=== PATIENT | female | born 1985 | race Caucasian/White ===

== ENCOUNTER → 2016-06-13 | Outpatient (CLI) | payer BC ==
--- NOTE | 2016-06-16 13:20 | XR ---
EXAMINATION TYPE: XR lumbosacral spine min 4V DATE OF EXAM: 06/13/2016 12:28 PM CLINICAL HISTORY: Low back pain. TECHNIQUE: Frontal, lateral, and oblique images of the lumbar spine are obtained. COMPARISON: Lumbar spine x-ray March 09, 2014. FINDINGS: There are 5 lumbar type vertebral bodies identified. The lumbar spine shows satisfactory alignment without evidence of acute fracture or dislocation. Vertebral body heights and disk space he ights are within normal limits. The oblique images appear within normal limits. The overlying soft tissue appears unremarkable. IMPRESSION: Unremarkable study. No significant change from prior.
== END | disposition home or self-care (01) ==
LOC: RADXRMAIN 12:14
PROVIDERS: ATTEND Family Medicine
DX: G89.29 Other chronic pain (principal)
CPT/HCPCS: 72110

== ENCOUNTER → 2016-06-18 | Outpatient (CLI) | payer BC ==
--- NOTE | 2016-06-18 11:33 | MR ---
EXAMINATION TYPE: MR lumbar spine wo con DATE OF EXAM: 06/18/2016 9:40 AM COMPARISON: X-ray 06/13/2016 HISTORY: Chronic back pain TECHNIQUE: Multiplanar, multisequence images of the lumbar spine were acquired. L1-L2: Normal disc appearance without desiccation. No herniation, protrusion or disc bulging. No ca nal stenosis is present. Foramina are patent bilaterally. L2-L3: Normal disc appearance without desiccation. No herniation, protrusion or disc bulging. No ca nal stenosis is present. Foramina are patent bilaterally. L3-L4: Normal disc appearance without desiccation. No herniation, protrusion or disc bulging. No ca nal stenosis is present. Foramina are patent bilaterally. L4-L5: Normal disc appearance without desiccation. No herniation, protrusion or disc bulging. No ca nal stenosis is present. Foramina are patent bilaterally. L5-S1: Normal disc appearance without desiccation. No herniation, protrusion or disc bulging. No ca nal stenosis is present. Foramina are patent bilaterally. Lumbar segments are intact. No paraspinal masses are identified. Conus medullaris has a normal appe arance. IMPRESSION: No acute process.
== END ==
LOC: RADMRIMAIN 09:01
PROVIDERS: ATTEND Family Medicine
DX: G89.29 Other chronic pain (principal); M54.9 Dorsalgia, unspecified
CPT/HCPCS: 72148

== ENCOUNTER 2017-01-10 00:53 | Emergency (ER) | payer BC, OTHER ==
[2017-01-10] MEDS ORDERED: METOCLOPRAMIDE 5 MG/ML 2 ML VIAL IVP STA (01:25)
[2017-01-10] MEDS ORDERED: SODIUM CHLORIDE 0.9% 500 ML IV STA (01:25)
[2017-01-10] MEDS ORDERED: diphenhydrAMINE 50 MG/ML 1 ML VIAL IVP STA (01:25)
[2017-01-10] MEDS ORDERED: KETOROLAC 30 MG/ML 1 ML VIAL IVP STA (01:25)
--- NOTE | 2017-01-10 02:07 | ED ---
Headache HPI - General Chief Complaint: Headache Stated Complaint: Migraine, weak Time Seen by Provider: 01/10/17 01:00 Mode of arrival: ambulatory Limitations: no limitations - History of Present Illness Initial Comments: 31-year-old female patient presents to emergency department today with complaints of headache. Patient states that she has had a headache for the last 2 days. States pain is constant, she states it starts on her right side of her forehead and radiates to the back of her head. Patient states she does have photo sensitivity, sound sensitivity, nausea, and has vomited. Patient states she does have a history of migraine headaches, however this is different and much worse than usual. She states she has been dizzy with this. She denies any dizziness, weakness, blurred vision, double vision, chest pain, short of breath, abdominal pain, the patient, diarrhea, dysuria, hematuria, urinary urgency or urinary frequency. She denies any fever or chills. She denies any trauma. She states she was recently restarted on her migraine medications due to her return in headaches. - Related Data Allergies Allergy/AdvReac Type Severity Reaction Status Date / Time cefaclor [From [facility]] Allergy Unknown Verified 01/10/17 00:59 Review of Systems ROS Statement: Those systems with pertinent positive or pertinent negative responses have been documented in the HPI. ROS Other: All systems not noted in ROS Statement are negative. Past Medical History Additional Past Medical History / Comment(s): migraines. back pain. History of Any Multi-Drug Resistant Organisms: None Reported Past Surgical History: Tonsillectomy Additional Past Surgical History / Comment(s): right ear. Past Psychological History: Depression, PTSD Smoking Status: Current every day smoker Past Alcohol Use History: None Reported Past Drug Use History: None Reported General Exam Limitations: no limitations General appearance: alert, in no apparent distress Head exam: Present: atraumatic, normocephalic, normal inspection Eye exam: Present: normal appearance, PERRL, EOMI. Absent: scleral icterus, conjunctival injection, periorbital swelling Pupils: Present: normal accommodation ENT exam: Present: normal exam, normal oropharynx, mucous membranes moist, TM's normal bilaterally Neck exam: Present: normal inspection. Absent: tenderness, meningismus, lymphadenopathy Respiratory exam: Present: normal lung sounds bilaterally. Absent: respiratory distress, wheezes, rales, rhonchi, stridor Cardiovascular Exam: Present: regular rate, normal rhythm, normal heart sounds. Absent: systolic murmur, diastolic murmur, rubs, gallop, clicks GI/Abdominal exam: Present: soft, normal bowel sounds. Absent: distended, tenderness, guarding, rebound, rigid Extremities exam: Present: normal inspection, full ROM, normal capillary refill. Absent: tenderness, pedal edema, joint swelling, calf tenderness Back exam: Present: normal inspection Neurological exam: Present: alert, oriented X3, CN II-XII intact Psychiatric exam: Present: normal affect, normal mood Skin exam: Present: warm, dry, intact, normal color. Absent: rash Course Vital Signs 01/10/17 00:55 Temperature 97.7 F Pulse Rate 71 Respiratory 20 Rate Blood Pressure 119/64 O2 Sat by Pulse 98 Oximetry Medical Decision Making - Medical Decision Making 31-year-old female patient presented for evaluation with a 2 day history of headache. CT of the brain without contrast showed no acute intracranial abnormalities. Physical exam is unremarkable. Patient is feeling much better after receiving medications and IV fluids here in the emergency department. Patient will be given additional pain medication before discharge. Patient instructed to follow-up with her primary care physician for further evaluation of headaches. Patient Shechter to return for any new, worsening, or concerning symptoms. His understanding and agrees to this plan. - Radiology Data Radiology results: report reviewed, image reviewed CT of the brain without contrast and pressure by Dr. Madrid reveals no acute intracranial abnormalities. Disposition Clinical Impression: Acute headache Disposition: HOME SELF-CARE Condition: Good Instructions: Acute Headache (ED) Additional Instructions: Follow-up with primary care physician for further evaluation of headaches. Return for any new, worsening, or concerning symptoms. Referrals: Kaelyn Patel MD [Primary Care Provider] - 1-2 days Time of Disposition: 02:24
--- NOTE | 2017-01-10 02:15 | CT ---
EXAM: CT Head Without Intravenous Contrast CLINICAL HISTORY: Reason: Pain TECHNIQUE: Axial computed tomography images of the head/brain without intravenous contrast. CTDI is 60.3 mGy and DLP is 1017.9 mGy-cm. This CT exam was performed using one or more of the following dose reduction techniques: automated exposure control, adjustment of the mA and/or kV according to patient size, and/or use of iterative reconstruction technique. COMPARISON: None. FINDINGS: Brain: No evidence of acute cerebral infarction or intracranial hemorrhage. Normal marquez-white differentiation. No cerebral edema Ventricles: Unremarkable. No ventriculomegaly. No abnormal mass effect. Bones/joints: No evidence of skull fracture Soft tissues: Unremarkable. Sinuses: Unremarkable as visualized. Mastoid air cells: Unremarkable as visualized. No mastoid effusion. IMPRESSION: No evidence of acute intracranial abnormality.
[2017-01-10] MEDS ORDERED: HYDROmorphone 1 MG/ML 1 ML SYRINGE IVP STA (02:22)
[2017-01-10 02:37] VITALS: BP 124/59; PULSE 62; RESP 16; TEMP 97.5
== END 2017-01-10 02:36 | disposition home or self-care (01) ==
LOC: EC 00:53
DX: R51 Headache (principal); R11.2 Nausea with vomiting, unspecified; R42 Dizziness and giddiness; F17.200 Nicotine dependence, unspecified, uncomplicated; Z88.1 Allergy status to other antibiotic agents
CPT/HCPCS: 70450; 99283; 96374; 96375 ×3; 96361; J1200; J2765; J1885; J1170

== ENCOUNTER → 2017-02-25 | Outpatient (CLI) | payer OTHER ==
[2017-02-25 09:46] LABS: Basophils # (A) 0.1 k/uL (0-0.2); Basophils % (A) 1 %; CH 28.8; CHCM 32.7; Eosinophils # (A) 0.2 k/uL (0-0.7); Eosinophils % (A) 2 %; HCT 38.1 % (34.0-46.0); HDW 2.26; HGB 12.7 gm/dL (11.4-16.0); Luc # (Auto) 0.15; Luc % (Auto) 2; Lymphocytes # (A) 1.9 k/uL (1.0-4.8); Lymphocytes % (A) 26 %; MCH 29.6 pg (25.0-35.0); MCHC 33.5 g/dL (31.0-37.0); MCV 88.4 fL (80.0-100.0); Mean Platelet Volume 6.8; Monocytes # (A) 0.4 k/uL (0-1.0); Monocytes % (A) 5 %; Neutrophils # (A) 4.6 k/uL (1.3-7.7); Neutrophils % (A) 63 %; RDW 12.3 % (11.5-15.5); WBC 7.3 k/uL (3.8-10.6); WBC (Perox) 7.34
--- NOTE | 2017-02-25 10:03 | US ---
EXAMINATION TYPE: US abdomen complete DATE OF EXAM: 02/25/2017 COMPARISON: CT chest abdomen and pelvis February 21, 2011. CLINICAL HISTORY: Nausea and vomiting R11.2. Intermittent sudden episodes of nausea and vomiting x 1 year EXAM MEASUREMENTS: Liver Length: 13.2 cm Gallbladder Wall: 0.2 cm CBD: 0.5 cm Spleen: 10.5 cm Right Kidney: 10.8 x 4.0 x 5.8 cm Left Kidney: 10.1 x 5.6 x 5.1 cm Pancreas: visualized portions wnl, tail obscured by overlying midline bowel gas Liver: somewhat course echotexture, otherwise appears wnl Gallbladder: wnl Evidence for sonographic Marino's sign: yes CBD: wnl Spleen: visualized portions wnl, limited by overlying bowel gas Right Kidney: no hydro or masses seen, inferior pole limited by overlying bowel gas Left Kidney: no hydro or masses seen, superior pole limited by rib shadowing and overlying bowel gas Upper IVC: wnl Abd Aorta: wnl The liver is homogenous. The intrahepatic portion of the IVC and proximal abdominal aorta are within normal limits. There is no evidence of cholelithiasis. Common bile duct is unremarkable. The visu alized portions of the pancreas are homogenous. The spleen is unremarkable. Kidneys are symmetric a nd free of hydronephrosis. No renal lesions are seen. IMPRESSION: No significant finding is seen to account for patient's symptoms.
[2017-02-25 10:15] LABS: ALT 27 U/L (9-52); AST 16 U/L (14-36); Alkaline Phosphatase 62 U/L (38-126); Anion Gap 9 mmol/L; Blood Urea Nitrogen 11 mg/dL (7-17); Calcium 9.9 mg/dL (8.4-10.2); Carbon Dioxide 25 mmol/L (22-30); Chloride 106 mmol/L (98-107); Glucose 86 mg/dL (74-99); Non-African American GFR(MDRD) >60 (>60 ml/min/1.73 sqM); Potassium 4.7 mmol/L (3.5-5.1); Sodium 140 mmol/L (137-145); Total Bilirubin 0.3 mg/dL (0.2-1.3)
[2017-02-25 18:14] LABS: Gliadin AB IgA, Deaminated NEGATIVE (NEGATIVE); Gliadin AB IgG, Deaminated NEGATIVE (NEGATIVE); Gliadin AB IgG, Unit <0.4 U/mL; Tis Transglutaminase IgA Unit <0.5 AI; Tis Transglutaminase IgG Unit <0.8 U/mL
== END | disposition home or self-care (01) ==
LOC: RADUSWWP 08:27
PROVIDERS: ATTEND Internal Medicine Gastroenterology
DX: R11.2 Nausea with vomiting, unspecified (principal)
CPT/HCPCS: 76700; 80053; 83516; 85025

== ENCOUNTER 2017-03-01 23:28 | Inpatient (IN) | payer OTHER ==
[2017-03-02] MEDS ORDERED: SODIUM CHLORIDE 0.9% 500 ML IV STA (00:22)
[2017-03-02] MEDS ORDERED: diphenhydrAMINE 50 MG/ML 1 ML VIAL IVP STA (00:22)
[2017-03-02] MEDS ORDERED: KETOROLAC 30 MG/ML 1 ML VIAL IVP STA (00:22)
[2017-03-02] MEDS ORDERED: METOCLOPRAMIDE 5 MG/ML 2 ML VIAL IVP STA (00:22)
--- NOTE | 2017-03-02 01:22 | ED ---
General Adult HPI - General Chief complaint: Psychiatric Symptoms Stated complaint: Suicidal Time Seen by Provider: 03/01/17 23:48 Source: patient Mode of arrival: ambulatory Limitations: no limitations - History of Present Illness Initial comments: This patient is a 31-year-old woman who presents with 2 complaints. The patient states that she is currently having a migraine headache. She has been having these for years. This headache has been going on for couple of days. Pain is located on the right and is throbbing. She states that this is the way her Migraine headaches usually are. The pain is constant, severe. She states it gets worse with bright lights. She states it's a little better with wearing sunglasses. The patient's second complaint is that she feels that she would be better off . She has been feeling this way for many years, but only brought this to her physician's attention recently. -: days(s) Location: head Radiation: non-radiation Quality: constant, other Consistency: constant Improves with: none Worsens with: other (Right) Associated Symptoms: nausea/vomiting Treatments Prior to Arrival: none - Related Data Allergies Allergy/AdvReac Type Severity Reaction Status Date / Time cefaclor [From [facility]] Allergy Unknown Verified 03/01/17 23:29 Review of Systems ROS Statement: Those systems with pertinent positive or pertinent negative responses have been documented in the HPI. ROS Other: All systems not noted in ROS Statement are negative. Constitutional: Denies: fever, chills, weakness Eyes: Denies: eye pain, vision change Respiratory: Denies: cough, dyspnea Cardiovascular: Denies: chest pain Gastrointestinal: Denies: abdominal pain Neurological: Reports: headache. Denies: weakness, numbness, paresthesias Past Medical History Additional Past Medical History / Comment(s): migraines. back pain. History of Any Multi-Drug Resistant Organisms: None Reported Past Surgical History: Tonsillectomy Additional Past Surgical History / Comment(s): right ear. Past Psychological History: Depression, PTSD Smoking Status: Current every day smoker Past Alcohol Use History: None Reported Past Drug Use History: None Reported General Exam Limitations: no limitations General appearance: alert, in no apparent distress Head exam: Present: atraumatic, normocephalic Pupils: Present: other (Unable to perform eye exam as patient does not want to remove her sunglasses) Neck exam: Present: normal inspection, full ROM. Absent: tenderness, meningismus Respiratory exam: Present: normal lung sounds bilaterally. Absent: respiratory distress, wheezes, rales, rhonchi, stridor Cardiovascular Exam: Present: regular rate, normal rhythm, normal heart sounds. Absent: systolic murmur, diastolic murmur, rubs, gallop GI/Abdominal exam: Present: soft. Absent: distended, tenderness, guarding, rebound, mass Extremities exam: Present: normal inspection, normal capillary refill. Absent: pedal edema, calf tenderness Back exam: Present: normal inspection. Absent: CVA tenderness (R), CVA tenderness (L) Neurological exam: Present: alert, oriented X3, CN II-XII intact. Absent: motor sensory deficit Skin exam: Present: warm, dry, intact, normal color. Absent: rash Course Vital Signs 03/01/17 03/02/17 23:29 04:37 Temperature 97.7 F Pulse Rate 95 79 Respiratory 18 16 Rate Blood Pressure 140/75 93/51 O2 Sat by Pulse 97 98 Oximetry Medical Decision Making - Lab Data Result diagrams: 03/02/17 01:01 03/02/17 01:01 Lab Results 03/02/17 03/02/17 03/02/17 Range/Units 01:01 01:01 01:01 WBC 9.7 (3.8-10.6) k/uL RBC 4.02 (3.80-5.40) m/uL Hgb 11.9 (11.4-16.0) gm/dL Hct 36.4 (34.0-46.0) % MCV 90.5 (80.0-100.0) fL MCH 29.5 (25.0-35.0) pg MCHC 32.6 (31.0-37.0) g/dL RDW 12.7 (11.5-15.5) % Plt Count 389 (150-450) k/uL Neutrophils % 60 % Lymphocytes % 30 % Monocytes % 5 % Eosinophils % 2 % Basophils % 1 % Neutrophils # 5.9 (1.3-7.7) k/uL Lymphocytes # 3.0 (1.0-4.8) k/uL Monocytes # 0.5 (0-1.0) k/uL Eosinophils # 0.2 (0-0.7) k/uL Basophils # 0.1 (0-0.2) k/uL Sodium 138 (137-145) mmol/L Potassium 4.2 (3.5-5.1) mmol/L Chloride 105 (98-107) mmol/L Carbon Dioxide 23 (22-30) mmol/L Anion Gap 10 mmol/L BUN 10 (7-17) mg/dL Creatinine 0.60 (0.52-1.04) mg/dL Est GFR (MDRD) Af Amer >60 (>60 ml/min/1.73 sqM) Est GFR (MDRD) Non-Af >60 (>60 ml/min/1.73 sqM) Glucose 87 (74-99) mg/dL Calcium 9.7 (8.4-10.2) mg/dL Urine HCG, Qual (Not Detectd) Urine Opiates Screen Detected H (NotDetected) Ur Oxycodone Screen Not Detected (NotDetected) Urine Methadone Screen Not Detected (NotDetected) Ur Propoxyphene Screen Not Detected (NotDetected) Ur Barbiturates Screen Not Detected (NotDetected) U Tricyclic Antidepress Not Detected (NotDetected) Ur Phencyclidine Scrn Not Detected (NotDetected) Ur Amphetamines Screen Not Detected (NotDetected) U Methamphetamines Scrn Not Detected (NotDetected) U Benzodiazepines Scrn Not Detected (NotDetected) Urine Cocaine Screen Not Detected (NotDetected) U Marijuana (THC) Screen Not Detected (NotDetected) Serum Alcohol <10 mg/dL 03/02/17 Range/Units 01:01 WBC (3.8-10.6) k/uL RBC (3.80-5.40) m/uL Hgb (11.4-16.0) gm/dL Hct (34.0-46.0) % MCV (80.0-100.0) fL MCH (25.0-35.0) pg MCHC (31.0-37.0) g/dL RDW (11.5-15.5) % Plt Count (150-450) k/uL Neutrophils % % Lymphocytes % % Monocytes % % Eosinophils % % Basophils % % Neutrophils # (1.3-7.7) k/uL Lymphocytes # (1.0-4.8) k/uL Monocytes # (0-1.0) k/uL Eosinophils # (0-0.7) k/uL Basophils # (0-0.2) k/uL Sodium (137-145) mmol/L Potassium (3.5-5.1) mmol/L Chloride (98-107) mmol/L Carbon Dioxide (22-30) mmol/L Anion Gap mmol/L BUN (7-17) mg/dL Creatinine (0.52-1.04) mg/dL Est GFR (MDRD) Af Amer (>60 ml/min/1.73 sqM) Est GFR (MDRD) Non-Af (>60 ml/min/1.73 sqM) Glucose (74-99) mg/dL Calcium (8.4-10.2) mg/dL Urine HCG, Qual Not Detected (Not Detectd) Urine Opiates Screen (NotDetected) Ur Oxycodone Screen (NotDetected) Urine Methadone Screen (NotDetected) Ur Propoxyphene Screen (NotDetected) Ur Barbiturates Screen (NotDetected) U Tricyclic Antidepress (NotDetected) Ur Phencyclidine Scrn (NotDetected) Ur Amphetamines Screen (NotDetected) U Methamphetamines Scrn (NotDetected) U Benzodiazepines Scrn (NotDetected) Urine Cocaine Screen (NotDetected) U Marijuana (THC) Screen (NotDetected) Serum Alcohol mg/dL Disposition Clinical Impression: Headache, Mood disorder Disposition: ADMITTED IP TO THIS [facility] Condition: Fair
[2017-03-02 01:53] LABS: Basophils # (A) 0.1 k/uL (0-0.2); Basophils % (A) 1 %; CH 29.2; CHCM 32.4; Eosinophils # (A) 0.2 k/uL (0-0.7); Eosinophils % (A) 2 %; HCT 36.4 % (34.0-46.0); HGB 11.9 gm/dL (11.4-16.0); Luc # (Auto) 0.17; Luc % (Auto) 2; Lymphocytes % (A) 30 %; MCH 29.5 pg (25.0-35.0); MCHC 32.6 g/dL (31.0-37.0); MCV 90.5 fL (80.0-100.0); Mean Platelet Volume 6.8; Monocytes # (A) 0.5 k/uL (0-1.0); Monocytes % (A) 5 %; Neutrophils # (A) 5.9 k/uL (1.3-7.7); Neutrophils % (A) 60 %; RBC 4.02 m/uL (3.80-5.40); RDW 12.7 % (11.5-15.5); WBC 9.7 k/uL (3.8-10.6); WBC (Perox) 10.27
[2017-03-02 01:56] LABS: Alcohol <10 mg/dL; Anion Gap 10 mmol/L; Blood Urea Nitrogen 10 mg/dL (7-17); Calcium 9.7 mg/dL (8.4-10.2); Carbon Dioxide 23 mmol/L (22-30); Chloride 105 mmol/L (98-107); Glucose 87 mg/dL (74-99); Non-African American GFR(MDRD) >60 (>60 ml/min/1.73 sqM); Potassium 4.2 mmol/L (3.5-5.1); Sodium 138 mmol/L (137-145)
[2017-03-02] MEDS ORDERED: LORazepam 1 MG TAB PO PRN (04:53)
[2017-03-02] MEDS ORDERED: MAGNESIUM HYDROXIDE 2,400 MG/10 ML CUP PO PRN (04:53)
[2017-03-02] MEDS ORDERED: MAG HYDROX/AL HYDROX/SIMETH 30 ML CUP PO PRN (04:53)
[2017-03-02] MEDS ORDERED: ZIPRASIDONE 20 MG VIAL IM PRN (04:53)
[2017-03-02 05:23] VITALS: BMI 22.8
[2017-03-02] MEDS ORDERED: DULoxetine HCL 30 MG CAPSULE.DR PO SCH (09:00)
[2017-03-02] MEDS: SYMBICORT 80-4.5 MCG INHALER INHALATION SCH ×2 (09:25→21:21)
[2017-03-02] MEDS: NICOTINE 14MG/24HR PATCH TRANSDERM SCH (09:31)
[2017-03-02] MEDS: lamoTRIgine 25 MG TAB PO SCH ×3 (09:31→21:23)
[2017-03-02] MEDS: PROPRANOLOL LA 80 MG CAP.SA.24H PO SCH (09:31)
[2017-03-02 11:26] LABS: Cholesterol 141 mg/dL (<200); HDL Cholesterol 66 mg/dL (40-60)
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
[2017-03-02] MEDS: ACETAMINOPHEN TAB 325 MG TAB PO PRN (13:43)
[2017-03-02 13:54] LABS: Hemoglobin A1C 5.6 % (4.2-6.1)
[2017-03-02] MEDS ORDERED: SUMAtriptan SUCCINATE 50 MG TAB PO PRN (14:43)
--- NOTE | 2017-03-02 14:54 | P.CONS ---
History of Present Illness - Reason for Consult Consult date: 03/02/17 Advice regarding bronchial asthma requested by psychiatrist - History of Present Illness This 31-year-old woman with a past medical history of migraine back pain anxiety bipolar depression and PTSD being followed by Dr. Patel in the outpatient setting was admitted for psychiatric evaluation. for bronchial asthma patient takes albuterol ordered when necessary basis and as well as Symbicort twice daily. for migraine patient takes relapex. There is no history of fever shortness of breath or chest pain palpitation headache loss of consciousness seizures at this time. Review of Systems REVIEW OF SYSTEMS: ENT: No diminished vision or hearing. CARDIOVASCULAR: Mentioned earlier. RESPIRATORY: As mentioned earlier. GI: No nauscea, vomiting or diarrhea. : No dysuria or retention. NERVOUS SYSTEM: No numbness or weakness. ALLERGY/IMMUNOLOGY: No asthma or hay fever. MUSCULOSKELETAL: As mentioned earlier. HEMATOLOGY/ONCOLOGY: No history of anemia. ENDOCRINE: No history of diabetes or hypothyroidism. CONSTITUTIONAL: As mentioned earlier. DERMATOLOGY: Negative. PSYCHIATRY: Mentioned earlier. RHEUMATOLOGY: Negative. Past Medical History Additional Past Medical History / Comment(s): migraines. back pain. History of Any Multi-Drug Resistant Organisms: None Reported Past Surgical History: Tonsillectomy Additional Past Surgical History / Comment(s): right ear drum repair. Past Anesthesia/Blood Transfusion Reactions: No Reported Reaction Past Psychological History: Anxiety, Bipolar, Depression, PTSD Smoking Status: Current every day smoker Past Alcohol Use History: None Reported Additional Past Alcohol Use History / Comment(s): Pt states that she rarely drinks alcohol Past Drug Use History: None Reported Additional Drug Use History / Comment(s): Pt denies current use - Past Family History Father History Unknown: Yes Mother History Unknown: Yes Medications and Allergies Home Medications Medication Instructions Recorded Confirmed Type ALPRAZolam [Xanax] 0.5 mg PO TID PRN 03/02/17 03/02/17 History Budesonide/Formoterol Fumarate 2 puff INHALATION RT-BID 03/02/17 03/02/17 History [Symbicort 80-4.5 Mcg Inhaler] DULoxetine HCL [Cymbalta] 30 mg PO DAILY 03/02/17 03/02/17 History EPINEPHrine (Auto Inject) [Epipen] 0.3 mg IM ONCE PRN 03/02/17 03/02/17 History Eletriptan HBr [Relpax] 20 mg PO DAILY PRN 03/02/17 03/02/17 History HYDROcodone/APAP 7.5-325MG [[place] 1 tab PO Q6H PRN 03/02/17 03/02/17 History 7.5-325] Omeprazole 20 mg PO DAILY 03/02/17 03/02/17 History Propranolol HCl [Inderal LA] 80 mg PO DAILY 03/02/17 03/02/17 History SILVER sulfADIAZINE CREAM 1 applic TOPICAL BID 03/02/17 03/02/17 History [Silvadene Cream] Zolpidem [Ambien] 10 mg PO HS 03/02/17 03/02/17 History lamoTRIgine [LaMICtal] 75 mg PO DAILY 03/02/17 03/02/17 History Allergies Allergy/AdvReac Type Severity Reaction Status Date / Time bee venom protein (honey bee) Allergy Anaphylaxis Verified 03/02/17 08:50 cefaclor [From [facility]] Allergy Unknown Verified 03/02/17 08:50 Physical Exam Vitals: Vital Signs Temp Pulse Pulse Resp BP BP Pulse Ox 03/02/17 05:46 97.5 F L 68 16 109/58 99 03/02/17 04:37 79 16 93/51 98 03/01/17 23:29 97.7 F 95 18 140/75 97 Intake and Output 03/01/17 03/02/17 03/02/17 22:59 06:59 14:59 Other: Weight 58.4 kg On exam, alert and oriented x3. HEENT: Conjunctivae normal. eyes normal. NECK: No JVD. No thyroid enlargement. No LNs CARDIOVASCULAR: S1, S2 muffled. No murmur RESPIRATION: Breath sounds diminished in the bases. No rhonchi or crackles. No bronchial breathing. ABDOMEN: Soft, nontender . No guarding. no masses palpable. No ascites, No hepatosplenomegaly.Bowel sounds heard. LEGS: No edema. no swelling NERVOUS SYSTEM: Cranial N 2-12 grossly normal. Moves all 4 limbs. No focal deficits. No sensory deficit. No signs of cerebellar dysfucntion. Skin: no ulcer no rash Joints: No active swelling. No inflammation. Lymphatic system. No LN neck axilla or groin. Results CBC & Chem 7: 03/02/17 01:01 03/02/17 01:01 Labs: Abnormal Lab Results - Last 24 Hours (Table) 03/02/17 03/02/17 Range/Units 01:01 01:01 HDL Cholesterol 66 H (40-60) mg/dL Urine Opiates Screen Detected H (NotDetected) Assessment and Plan Plan: Assessment 1. Bronchial asthma chronic stable. 2. Migraine extensive. Back pain X in 4. Anxiety bipolar depression and PTSD 5. History and nicotine dependence Plan In this 31-year-old woman who was admitted for inpatient psych evaluation at this time I would recommend to continue the home medications including Symbicort and albuterol. As far as migraine management is concerned Inderal and the rest of the medications and the may use of when necessary Tylenol and at this time. Otherwise patient may be asked to follow-up with the primary physician Dr. Patel closely in the outpatient setting after discharge. Smoking cessation is advised. Thank you for letting us part spectacles patient. Discussed with the patient.
[2017-03-02] MEDS: PRAZOSIN 1 MG CAP PO SCH (21:23)
[2017-03-03] MEDS: NICOTINE 14MG/24HR PATCH TRANSDERM SCH (08:30)
[2017-03-03] MEDS: PANTOPRAZOLE 40 MG TABLET PO SCH (08:30)
[2017-03-03] MEDS: PROPRANOLOL LA 80 MG CAP.SA.24H PO SCH (08:30)
[2017-03-03] MEDS: lamoTRIgine 100 MG TAB PO SCH (08:31)
[2017-03-03] MEDS: DULoxetine HCL 20 MG CAPSULE.DR PO SCH (08:31)
[2017-03-03] MEDS: ACETAMINOPHEN TAB 325 MG TAB PO PRN (08:33)
[2017-03-03] MEDS: SYMBICORT 80-4.5 MCG INHALER INHALATION SCH ×2 (09:19→21:29)
[2017-03-03] MEDS ORDERED: hydrOXYzine PAMOATE 25 MG CAP PO PRN (11:10)
--- NOTE | 2017-03-03 14:45 | P.PN ---
Progress Note - Text Interval History: Patient is a 31-year-old female who was seen today and reports that she slept about 3 hours last night and had difficulty falling asleep but she did not have any nightmares. She reported having a migraine today she was having difficulty getting rid of. Patient states that she is not having any suicidal thoughts and feels slightly less depressed and still somewhat hopeless. She says she does not want to . She states that she is having difficulty going to groups and sharing with people. Patient reported no difficulties with depresses eating, not feeling lightheaded or dizzy. She also reported no side effects from the increase in Cymbalta or Lamictal area] Mental Status: Appearance/Attitude: Patient is neatly groomed, appropriately dressed and makes good eye contact and is cooperative. Behavior: Patient does not display any psychomotor agitation or retardation. Speech/Language: Patient's speech is spontaneous, normal volume and rhythm and she is coherent. Thought Process: Patient is goal-directed, there is no evidence of circumstantial or tangential thought no loose associations or flight of ideas. Thought Content: Patient denies any auditory or visual hallucinations and no delusions or paranoid ideation were elicited. Patient states that she couldn't follow sleep last night but did not have any nightmares. She also reported that she was having a migraine headache today and was having difficulty getting rid of it. Patient states that she still feels hopeless and still is depressed but is no longer feeling like she wants to . Suicidal/Homicidal Ideation: Patient denies any current suicidal or homicidal ideation. Sensorium/Cognition: Patient is alert and oriented to person, place, and time and her memory is grossly intact Mood/Affect: Patient's mood is slightly depressed and her affect is appropriate to her mood. Insight/Judgement: Patient's insight and judgment are fair. Assessment: Patient reported that she did not any side effects from the president seen and had no nightmares last night but did not sleep for more than 3 hours. Patient reports that she is still feeling depressed and still feeling hopeless but is no longer having thoughts that she wants to . Patient states that she feels uncomfortable in groups and activities and has not been participating. Patient requested that she return to [facility] for follow-up after discharge she had gone there in the past and felt comfortable there. Plan: Patient will continue on Cymbalta 40 mg in the morning, Lamictal 100 mg and prazosin 1 mg at bedtime. We discussed the use and side effects of Vistaril for sleep and she will have Vistaril 25 mg at bedtime on an as-needed basis. Patient continues to require hospitalization to further stabilize her mood. She and I discussed discharge later in the week.
[2017-03-03] MEDS: PRAZOSIN 1 MG CAP PO SCH (20:20)
[2017-03-04 00:15] VITALS: TEMP 97.9
[2017-03-04] MEDS: PRAZOSIN 1 MG CAP PO SCH (00:20)
[2017-03-04] MEDS: ACETAMINOPHEN TAB 325 MG TAB PO PRN ×2 (00:21→13:14)
[2017-03-04] MEDS: SYMBICORT 80-4.5 MCG INHALER INHALATION SCH (09:13)
[2017-03-04] MEDS: PROPRANOLOL LA 80 MG CAP.SA.24H PO SCH (09:30)
[2017-03-04] MEDS: DULoxetine HCL 20 MG CAPSULE.DR PO SCH (09:31)
[2017-03-04] MEDS: lamoTRIgine 100 MG TAB PO SCH (09:31)
[2017-03-04] MEDS: PANTOPRAZOLE 40 MG TABLET PO SCH (09:31)
[2017-03-04] MEDS: NICOTINE 14MG/24HR PATCH TRANSDERM SCH (09:31)
[2017-03-04 09:42] VITALS: BP 105/60; PULSE 92; RESP 18
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
== END 2017-03-04 14:25 | disposition home or self-care (01) | DRG 885 ==
LOC: EC 23:28 → 3MHU 03-02 04:36
PROVIDERS: ADMIT Psychiatry & Neurology Psychiatry; ATTEND Psychiatry & Neurology Psychiatry
DX: F31.81 Bipolar II disorder (principal); R45.851 Suicidal ideations; F43.10 Post-traumatic stress disorder, unspecified; F90.9 Attention-deficit hyperactivity disorder, unspecified type; G43.909 Migraine, unspecified, not intractable, without status migrainosus; J45.909 Unspecified asthma, uncomplicated; Z62.810 Personal history of physical and sexual abuse in childhood; Z79.899 Other long term (current) drug therapy; Z91.410 Personal history of adult physical and sexual abuse; Z91.411 Personal history of adult psychological abuse; F17.200 Nicotine dependence, unspecified, uncomplicated; Z88.1 Allergy status to other antibiotic agents; Z91.030 Bee allergy status
CPT/HCPCS: 36415; 80048; 80061; 80306; 80320; 81025; 82075; 83036; 84443; 84484; 85025; 93005; 94640; 96361; 96374; 96375; 99285

== ENCOUNTER 2017-12-16 02:45 | Emergency (ER) | payer OTHER ==
[2017-12-16] MEDS ORDERED: METOCLOPRAMIDE 5 MG/ML 2 ML VIAL ONE (03:05)
[2017-12-16] MEDS ORDERED: SODIUM CHLORIDE 0.9% 1,000 ML BAG ONE (03:05)
[2017-12-16] MEDS ORDERED: KETOROLAC 30 MG/ML 1 ML VIAL ONE (03:05)
[2017-12-16] MEDS ORDERED: diphenhydrAMINE 50 MG/ML 1 ML VIAL ONE (03:05)
== END 2017-12-16 04:25 | disposition home or self-care (01) ==
LOC: EC 02:45
DX: G43.909 Migraine, unspecified, not intractable, without status migrainosus (principal); F32.9 Major depressive disorder, single episode, unspecified; F43.10 Post-traumatic stress disorder, unspecified; F17.200 Nicotine dependence, unspecified, uncomplicated; Z79.899 Other long term (current) drug therapy; Z88.1 Allergy status to other antibiotic agents
CPT/HCPCS: 99283; 96374; 96375 ×2; 96361; J1200; J2765; J1885

== ENCOUNTER 2018-09-17 00:22 | Emergency (ER) | payer MEDICAID, OTHER ==
[2018-09-17 00:44] VITALS: BP 120/71; PULSE 93; RESP 18; TEMP 98.1
[2018-09-17] MEDS ORDERED: DIPH,PERTUS(ACELL)TETVAC-LF 0.5 ML VIAL IM ONE (01:29)
--- NOTE | 2018-09-17 02:07 | ED ---
Animal Bite HPI - General Chief Complaint: Animal Bite Stated Complaint: R hand Dog Bite Time Seen by Provider: 09/17/18 01:19 Source: patient Mode of arrival: ambulatory Limitations: no limitations - History of Present Illness Initial Comments: Patient is a right-hand dominant 32-year-old female who presents the emergency department today for evaluation of injury to the right hand. Patient reports she was walking when she tripped and fell, as she fell her roommates puppy playful he attempted to bite at her hand and she ended up landing with her hand on the puppies face and one of the puppies teeth lacerated the palm of her hand. Patient reports that the puppy has received his first round of vaccinations, she has no concern that the puppy has rabies he has not been acting irregular at all he's been playful as usual self. Patient does not know when her last tetanus vaccine was. Patient reports that she cleansed the wound is thoroughly as possible and then placed Steri-Strips over it. - Related Data Home Medications Medication Instructions Recorded Confirmed Budesonide/Formoterol Fumarate 2 puff INHALATION RT-BID 03/02/17 03/02/17 [Symbicort 80-4.5 Mcg Inhaler] EPINEPHrine (Auto Inject) [Epipen] 0.3 mg IM ONCE PRN 03/02/17 03/02/17 Eletriptan HBr [Relpax] 20 mg PO DAILY PRN 03/02/17 03/02/17 Omeprazole 20 mg PO DAILY 03/02/17 03/02/17 Propranolol HCl [Inderal LA] 80 mg PO DAILY 03/02/17 03/02/17 SILVER sulfADIAZINE CREAM 1 applic TOPICAL BID 03/02/17 03/02/17 [Silvadene Cream] Previous Rx's Medication Instructions Recorded DULoxetine HCL [Cymbalta] 40 mg PO DAILY #28 cap 03/04/17 Prazosin [Minipress] 1 mg PO HS #14 cap 03/04/17 hydrOXYzine PAMOATE [Vistaril] 25 mg PO HS PRN #14 cap 03/04/17 lamoTRIgine [LaMICtal] 100 mg PO DAILY #14 tab 03/04/17 Allergies Allergy/AdvReac Type Severity Reaction Status Date / Time bee venom protein (honey bee) Allergy Anaphylaxis Verified 09/17/18 00:44 cefaclor [From Ceclor] Allergy Unknown Verified 09/17/18 00:44 ondansetron [From Zofran] AdvReac Unknown Verified 09/17/18 00:45 Review of Systems ROS Statement: Those systems with pertinent positive or pertinent negative responses have been documented in the HPI. ROS Other: All systems not noted in ROS Statement are negative. Past Medical History Additional Past Medical History / Comment(s): migraines. back pain. History of Any Multi-Drug Resistant Organisms: None Reported Past Surgical History: Tonsillectomy Additional Past Surgical History / Comment(s): right ear drum repair. Past Anesthesia/Blood Transfusion Reactions: No Reported Reaction Past Psychological History: Anxiety, Bipolar, Depression, PTSD Smoking Status: Current every day smoker Past Alcohol Use History: None Reported Past Drug Use History: None Reported - Past Family History Father History Unknown: Yes Mother History Unknown: Yes General Exam - General Exam Comments Initial Comments: Physical Exam GENERAL: Patient is well-developed and well-nourished. Patient is nontoxic and well- hydrated and is in no distress. HENT: Normocephalic, Atraumatic. EYES: PERRL PULMONARY: Unlabored respirations. CARDIOVASCULAR: RRR ABDOMEN: Non-distended SKIN: Approx 1cm superficial laceration to palm of hand Superficial puncture wounds consistent with puppy bite No deep injury No concern for nerve/tendon injury Full ROM of hand : Deferred NEUROLOGIC: Patient is alert and oriented x3. Moving all extremities spontaneously MUSCULOSKELETAL: Normal extremities with adequate strength and full range of motion. No lower extremity swelling or edema. No calf tenderness. PSYCHIATRIC: Normal psychiatric evaluation. Limitations: no limitations Limitations: no limitations Course Vital Signs 09/17/18 00:39 Temperature 98.1 F Pulse Rate 93 Respiratory 18 Rate Blood Pressure 120/71 O2 Sat by Pulse 100 Oximetry Medical Decision Making - Medical Decision Making The patient was seen and evaluated history is obtained from patient Patient a mechanical trip and fall landing with her hand against the puppies mouth resulting in a small laceration to her hand x-rayed patient has no concern for a puppy having any exposure rabies or irregular behavior, the puppy is vaccinated Patient will need tetanus vaccine today X-ray with no foreign bodies no free air Patient received a tetanus vaccine at this time the patient is comfortable with plan for discharge home, local wound care Questions pertaining care answered best my ability return parameters discussed patient was discharged home in stable condition Disposition Clinical Impression: Bite by animal Disposition: HOME SELF-CARE Instructions (If sedation given, give patient instructions): Animal Bite (ED) Is patient prescribed a controlled substance at d/c from ED?: No Referrals: Kaelyn Patel MD [Primary Care Provider] - 1-2 days
--- NOTE | 2018-09-17 02:11 | XR ---
EXAM: XR Right Hand Complete, 2 Views CLINICAL HISTORY: ITS.REASON XR Reason: dog bite - eval for retained teeth TECHNIQUE: Frontal and lateral views of the right hand. COMPARISON: No relevant prior studies available. FINDINGS: Bones/joints: Unremarkable. No acute fracture. No dislocation. Soft tissues: No evidence of retained radiopaque foreign body. IMPRESSION: No evidence of retained radiopaque foreign body.
== END 2018-09-17 02:18 | disposition home or self-care (01) ==
LOC: EC 00:22
DX: S61.411A Laceration without foreign body of right hand, initial encounter (principal); S61.431A Puncture wound without foreign body of right hand, initial encounter; G43.909 Migraine, unspecified, not intractable, without status migrainosus; F17.200 Nicotine dependence, unspecified, uncomplicated; Z23 Encounter for immunization; Z79.51 Long term (current) use of inhaled steroids; Z79.899 Other long term (current) drug therapy; Z88.1 Allergy status to other antibiotic agents; Z88.8 Allergy status to other drugs, medicaments and biological substances; Z91.030 Bee allergy status; W54.0XXA Bitten by dog, initial encounter; W01.0XXA Fall on same level from slipping, tripping and stumbling without subsequent striking against object, initial encounter; Y93.01 Activity, walking, marching and hiking
CPT/HCPCS: 90471; 90715; 99283

== ENCOUNTER → 2019-01-31 | Outpatient (CLI) | payer MEDICAID ==
--- NOTE | 2019-01-31 15:26 | MR ---
EXAMINATION TYPE: MR brain wo/w con DATE OF EXAM: 01/31/2019 COMPARISON: CT brain dated 01/10/2017 and MRA of the brain dated 07/28/2015 HISTORY: Childhood onset fluency disorder, stuttering TECHNIQUE: Multiplanar, multisequence images of the brain and brainstem is performed without and with IV contras t, utilizing 5.5 mL intravenous Gadavist . FINDINGS: Diffusion weighted images demonstrate no evidence of a recent infarct or other diffusion ab normality. There is no extra-axial fluid collection or significant white matter signal abnormality. The ventricular system and cisternal spaces are normal in size and appearance. The brain volume is age appropriate. 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 Although this appears benign and there is mass effect on the superior tectum and narrowing of the cerebral aqueduct. No current hydrocephalus. Remaining midline structure s demonstrate normal morphology. The craniocervical junction appears within normal limits. There is mild leftward nasal septal deviation. Post contrast images demonstrate no abnormal enhancement. The d ural venous sinuses appear patent. Trace mucosal thickening in the right maxillary sinus laterally. T he remaining visualized sinuses are clear and the globes are intact. IMPRESSION: 1. 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 No current hydrocephalus although if there is interval growth obstructive hydrocephalus may result. Additionally as there is impression on the superior tectum this may cause Parinaud's syndrome clinically. 2. Trace right maxillary mucosal thickening.
== END | disposition home or self-care (01) ==
LOC: RADMRIMAIN 11:08
PROVIDERS: ATTEND Family Medicine
DX: D35.4 Benign neoplasm of pineal gland (principal); G93.89 Other specified disorders of brain; F80.81 Childhood onset fluency disorder
CPT/HCPCS: 70553; A9585

== ENCOUNTER 2019-03-01 20:54 | Emergency (ER) | payer MEDICAID ==
[2019-03-01 21:18] VITALS: RESP 18
--- NOTE | 2019-03-01 21:37 | ED ---
Headache HPI - General Chief Complaint: Headache Stated Complaint: migraine Time Seen by Provider: 03/01/19 21:34 Mode of arrival: ambulatory Limitations: no limitations - History of Present Illness Initial Comments: Jasmyne is a 33-year-old female with a recent history of migraines for which she has been thoroughly evaluated had an MRI been referred to neurosurgery and neurology. Patient's currently prescribed Imitrex. Patient reports she suffers from daily migraines and has a number of months. She reports that when the migraines worsen she takes her Imitrex. She states she's been having this migraine for a number of days, it became worse over the past couple of days she took Imitrex this morning it helped slightly she wanted to repeat the dose this afternoon however she is out of her Imitrex in her doctor's office was closed. Patient states that she could not tolerate the migraine anymore which prompted her to come to the ER for evaluation. Patient denies any associated fevers, chills, vision changes, neurologic deficits. She denies any neck pain. This is not the worse headache of her life and was not sudden in onset. - Related Data Home Medications Medication Instructions Recorded Confirmed DULoxetine HCL [Cymbalta] 30 mg PO DAILY 03/01/19 03/01/19 Allergies Allergy/AdvReac Type Severity Reaction Status Date / Time bee venom protein (honey bee) Allergy Anaphylaxis Verified 03/01/19 22:58 cefaclor [From Ceclor] Allergy Unknown Verified 03/01/19 22:58 ondansetron [From Zofran] AdvReac Unknown Verified 03/01/19 22:58 Review of Systems ROS Statement: Those systems with pertinent positive or pertinent negative responses have been documented in the HPI. ROS Other: All systems not noted in ROS Statement are negative. Past Medical History Additional Past Medical History / Comment(s): migraines. back pain. History of Any Multi-Drug Resistant Organisms: None Reported Past Surgical History: Tonsillectomy Additional Past Surgical History / Comment(s): right ear drum repair. Past Anesthesia/Blood Transfusion Reactions: No Reported Reaction Past Psychological History: Anxiety, Bipolar, Depression, PTSD Smoking Status: Current every day smoker Past Alcohol Use History: None Reported Past Drug Use History: None Reported - Past Family History Father History Unknown: Yes Mother History Unknown: Yes General Exam - General Exam Comments Initial Comments: Physical Exam GENERAL: Patient is well-developed and well-nourished. Patient is nontoxic and well-hydrated and is in no distress. HENT: Normocephalic, Atraumatic. No nuchal rigidity EYES: PERRL, EOMI No papilledema PULMONARY: Unlabored respirations. No audible rales rhonchi or wheezing was noted. CARDIOVASCULAR: There is a regular rate and rhythm without any murmurs gallops or rubs. ABDOMEN: Soft and nontender with normal bowel sounds. SKIN: Skin is clear with no lesions or rashes and otherwise unremarkable. : Deferred NEUROLOGIC: Patient is alert and oriented x3. Moving all extremities spontaneously Patient has a stutter that is inconsistent, occurs occasionally can be corrected MUSCULOSKELETAL: Normal extremities with adequate strength and full range of motion. No lower extremity swelling or edema. No calf tenderness. PSYCHIATRIC: Normal psychiatric evaluation. Limitations: no limitations Course Vital Signs 03/01/19 21:15 Temperature 98.6 F Pulse Rate 65 Respiratory 18 Rate Blood Pressure 117/63 O2 Sat by Pulse 98 Oximetry Medical Decision Making - Medical Decision Making The patient was seen and evaluated history was obtained from the patient History and physical exam are concerning for exacerbation of chronic migraine IV fluids and medications ordered Patient was re-evaluated, sleeping comfortably, would like to be discharged home - Lab Data Lab Results 03/01/19 03/01/19 Range/Units 21:52 21:52 Urine Color Yellow Urine Appearance Clear (Clear) Urine pH 7.0 (5.0-8.0) Ur Specific [place] 1.009 (1.001-1.035) Urine Protein 1+ H (Negative) Urine Glucose (UA) Negative (Negative) Urine Ketones Negative (Negative) Urine Blood Negative (Negative) Urine Nitrite Negative (Negative) Urine Bilirubin Negative (Negative) Urine Urobilinogen <2.0 (<2.0) mg/dL Ur Leukocyte Esterase Negative (Negative) Urine WBC 1 (0-5) /hpf Ur Squamous Epith Cells 2 (0-4) /hpf Urine Bacteria Occasional H (None) /hpf Urine Mucus Rare H (None) /hpf Urine HCG, Qual Not Detected (Not Detectd) Disposition Clinical Impression: Headache Disposition: HOME SELF-CARE Condition: Stable Instructions (If sedation given, give patient instructions): Acute Headache (ED) Is patient prescribed a controlled substance at d/c from ED?: No Referrals: Kaelyn Patel MD [Primary Care Provider] - 1-2 days
[2019-03-01] MEDS ORDERED: KETOROLAC 30 MG/ML 1 ML VIAL IVP ONE (22:03)
[2019-03-01] MEDS ORDERED: diphenhydrAMINE 50 MG/ML 1 ML VIAL IVP STA (22:03)
[2019-03-01] MEDS ORDERED: SODIUM CHLORIDE 0.9% 1,000 ML IV ONE (22:03)
[2019-03-01] MEDS ORDERED: METOCLOPRAMIDE 5 MG/ML 2 ML VIAL IVP STA (22:03)
[2019-03-01 22:09] LABS: Appearance,Urine Clear (Clear); Bacteria,Urine Occasional /hpf; Bilirubin,Urine Negative (Negative); Blood,Urine Negative (Negative); Color,Urine Yellow; Glucose,Urine (UA) Negative (Negative); Ketones,Urine Negative (Negative); Leukocyte Esterase,Urine Negative (Negative); Mucus,Urine Rare /hpf; Nitrite,Urine Negative (Negative); Protein,Urine 1+ (Negative); Specific Gravity,Urine 1.009 (1.001-1.035); Squamous Epithelial Cell,Urine 2 /hpf (0-4); Urobilinogen,Urine <2.0 mg/dL (<2.0); WBC,Urine 1 /hpf (0-5)
[2019-03-02 00:29] VITALS: BP 115/68; PULSE 72; TEMP 98.3
== END 2019-03-02 00:30 | disposition home or self-care (01) ==
LOC: EC 20:54
DX: R51 Headache (principal); F31.9 Bipolar disorder, unspecified; F43.10 Post-traumatic stress disorder, unspecified; F41.9 Anxiety disorder, unspecified; F17.200 Nicotine dependence, unspecified, uncomplicated; Z79.899 Other long term (current) drug therapy; Z88.1 Allergy status to other antibiotic agents; Z88.8 Allergy status to other drugs, medicaments and biological substances; Z91.030 Bee allergy status
CPT/HCPCS: 81001; 81025; 99283; 96374; 96375 ×2; 96361; J1200; J2765; J1885

== ENCOUNTER → 2019-06-29 | Outpatient (CLI) | payer OTHER ==
--- NOTE | 2019-06-29 14:36 | MR ---
EXAMINATION TYPE: MR brain wo/w con DATE OF EXAM: 06/29/2019 COMPARISON: Prior MRI brain January 31, [address] brain January 10, 2017 HISTORY: Benign Neoplasm of Pineal Gland TECHNIQUE: Multiplanar, multisequence images of the brain and brainstem is performed without and with IV contras t, utilizing 5.5 mL intravenous Gadavist . FINDINGS: Diffusion weighted images demonstrate no evidence of a recent infarct or other diffusion ab normality. There is no extra-axial fluid collection or significant white matter signal abnormality. The ventricular system and cisternal spaces are normal in size and appearance. The brain volume is age appropriate. Midline structures redemonstrate low T1 and high T2 rounded lesion at level of pineal gland axial donte ge 15 without suspicious enhancement measuring 1.5 cm AP diameter by 1.3 cm transversely by 1.1 cm cr aniocaudal dimension sagittal image 72 postcontrast image without suspicious nodularity having local mass effect on the superior tectum and cerebral aqueduct. No new hydrocephalus noted. The craniocervical junction appears within normal limits. Suprasellar cistern is maintained. Post con trast images demonstrate no abnormal enhancement. The dural venous sinuses appear patent. The visuali zed sinuses are clear and the globes are intact. 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 As noted on prior study there is impression on the superior tectum which may cause Parinaud's syndr ome, correlate clinically.
== END | disposition home or self-care (01) ==
LOC: RADMRIMAIN 13:38
PROVIDERS: ATTEND Psychiatry & Neurology Sleep Medicine
DX: E34.8 Other specified endocrine disorders (principal)
CPT/HCPCS: 70553; A9585

== ENCOUNTER → 2019-07-04 | Outpatient (CLI) | payer OTHER ==
--- NOTE | 2019-07-05 01:29 | EEG ---
ELECTROENCEPHALOGRAM REPORT PROCEDURE DATE: 07/04/2019. ELECTROENCEPHALOGRAM (EEG) REPORT: TECHNIQUE: A routine 18 channel EEG was performed with video using the 10/20 international electrode placement system. HISTORY: Headaches and stuttering. The patient states her friend notices that patient zones out at times during the conversation. CURRENT MEDICATIONS: Xanax, Lamictal, Cymbalta. STUDY DURATION: 31 minutes. FINDINGS: BACKGROUND: The background activity consists of 9-10 hertz rhythmic waveforms symmetrically seen through both posterior quadrants. ACTIVATION: Hyperventilation: Induced mild physiological slowing. Photic stimulation: Symmetric driving seen. Sleep: Drowsy. ABNORMALITIES: None. Please note that per hazardous materials waste technician annotation, a right shoulder jerk was noted at 9:01 am, 58, sudden body jerking was noted at 9:02 am, 32, 09:02:53, 09:02:58, 09:03:16, 09:03:31, 09:03:39. Muscle artifact was seen at this point, these events were not associated with epileptiform activity. IMPRESSION: Normal EEG. No epileptiform activity was present. No seizures were recorded. MMODL / IJN: [id number] /
== END | disposition home or self-care (01) ==
LOC: NEUROMAIN 08:10
PROVIDERS: ATTEND Family Medicine
DX: G40.309 Generalized idiopathic epilepsy and epileptic syndromes, not intractable, without status epilepticus (principal)
CPT/HCPCS: 95816

== ENCOUNTER → 2019-08-18 | Outpatient (CLI) | payer OTHER ==
--- NOTE | 2019-08-29 12:43 | EM ---
EVENT MONITOR This is a 7-day event monitor. INDICATION: Rule out cardiac arrhythmia. The baseline rhythm appeared to be sinus mechanism. The patient did have multiple episodes of sinus tachycardia with a heart rate around 105 to 110 beats per minute. No evidence of any significant sinus bradycardia noted. No evidence of any advanced AV block seen. No evidence of sinus pause or sinus arrest. No evidence of atrial fibrillation or atrial flutter. CONCLUSION: 1. This is a 7-day event monitor. 2. The baseline rhythm is sinus mechanism. 3. The patient did have multiple episodes of sinus tachycardia. 4. No evidence of any sinus bradycardia noted. 5. No evidence of any sinus pause or sinus arrest. 6. No evidence of any advanced AV block. 7. No evidence of any atrial fibrillation or atrial flutter. 8. The patient reported some symptoms of dizziness and lightheadedness and the symptoms were associated with sinus tachycardia. MMODL / IJN: [id number] /
== END | disposition home or self-care (01) ==
LOC: RADECHMAIN 12:08
PROVIDERS: ATTEND Family Medicine
DX: R00.0 Tachycardia, unspecified (principal)
CPT/HCPCS: 93270

== ENCOUNTER 2020-01-01 19:25 | Emergency (ER) | payer MEDICAID, OTHER ==
[2020-01-01 19:33] VITALS: TEMP 97.9
--- NOTE | 2020-01-01 19:56 | ED ---
Fall HPI - General Chief Complaint: Fall Stated Complaint: Fall Time Seen by Provider: 01/01/20 19:35 Source: patient Mode of arrival: ambulatory - History of Present Illness Initial Comments: Patient is a 34-year-old female presenting to the emergency department with chief complaint of a fall. Patient states she was smoking outside and then she fell down to the ground. Patient states she doesn't know if she had a syncopal episode. States she did not trip and fall. States she did hit her face and has pain at the bridge of the nose patient denies any epistaxis. States after the incident she smoked marijuana in order to help with the pain. States she did not smoke any marijuana prior to the incident. States she does have history of falls secondary to hypotensive episodes. Denies any use of blood thinners at this time. Denies any visual changes, headaches, one-sided weakness or paresthesias. No chest pain shortness of breath. - Related Data Home Medications Medication Instructions Recorded Confirmed DULoxetine HCL [Cymbalta] 30 mg PO DAILY 03/01/19 03/01/19 Allergies Allergy/AdvReac Type Severity Reaction Status Date / Time bee venom protein (honey bee) Allergy Anaphylaxis Verified 01/01/20 19:33 cefaclor [From Ceclor] Allergy Unknown Verified 01/01/20 19:33 ondansetron [From Zofran] AdvReac Unknown Verified 01/01/20 19:33 Review of Systems ROS Statement: Those systems with pertinent positive or pertinent negative responses have been documented in the HPI. ROS Other: All systems not noted in ROS Statement are negative. Past Medical History Additional Past Medical History / Comment(s): migraines. back pain. History of Any Multi-Drug Resistant Organisms: None Reported Past Surgical History: Tonsillectomy Additional Past Surgical History / Comment(s): right ear drum repair. Past Anesthesia/Blood Transfusion Reactions: No Reported Reaction Past Psychological History: Anxiety, Bipolar, Depression, PTSD Past Alcohol Use History: None Reported Past Drug Use History: None Reported - Past Family History Father History Unknown: Yes Mother History Unknown: Yes General Exam Limitations: no limitations General appearance: alert, in no apparent distress Head exam: Present: atraumatic, normocephalic, normal inspection. Absent: other (Negative Lerma sign, negative raccoon eyes, negative hemotympanum.) Eye exam: Present: normal appearance, PERRL, EOMI Pupils: Present: normal accommodation ENT exam: Present: normal exam, normal oropharynx (No oral trauma. Some tenderness at the bridge of nose. No signs of septal hematoma.), mucous membranes moist, TM's normal bilaterally, normal external ear exam Neck exam: Present: normal inspection, full ROM. Absent: tenderness Respiratory exam: Present: normal lung sounds bilaterally. Absent: respiratory distress, wheezes Cardiovascular Exam: Present: regular rate, normal rhythm, normal heart sounds GI/Abdominal exam: Present: soft. Absent: distended, tenderness, guarding Extremities exam: Present: normal inspection, full ROM, normal capillary refill, other (+2 ulnar and radial pulses bilaterally.). Absent: tenderness Back exam: Present: normal inspection, full ROM. Absent: tenderness, CVA tenderness (R), CVA tenderness (L), muscle spasm, paraspinal tenderness, vertebral tenderness Neurological exam: Present: alert, oriented X3, CN II-XII intact, normal gait Psychiatric exam: Present: normal affect, normal mood Skin exam: Present: warm, dry, intact, normal color Course Vital Signs 01/01/20 01/01/20 19:29 20:48 Temperature 97.9 F Pulse Rate 63 78 Respiratory 20 18 Rate Blood Pressure 106/64 97/59 O2 Sat by Pulse 97 100 Oximetry Medical Decision Making - Medical Decision Making Patient is a 34-year-old female presenting to emergency Department with a chief complaint of a fall. Physical examination of the head is unremarkable. ENT examination is negative for any obvious fractures aside for small region of ecchymosis at the bridge of the nose. No signs of Septal hematoma. Brain and C-spine CT without contrast is unremarkable. Facial CT is also negative for any acute processes. Patient did state that she went down with no apparent cause. She does have history of fall secondary to a hypotensive episode. Urine test is negative. EKG shows sinus bradycardia with no significant ST or T-wave changes. Patient discharged with Tylenol 3 starter pack for the patient pain secondary to fall. Return parameters were thoroughly discussed patient was resting and agreeable. Case discussed with physician. - Lab Data Lab Results 01/01/20 Range/Units 20:29 Urine HCG, Qual Not Detected (Not Detectd) - EKG Data EKG Comments: Sinus bradycardia, no ST or T-wave changes. Ventricular rate 57, OH 118, QRS 80, QTC 387. Disposition Clinical Impression: Fall, Head injury Disposition: HOME SELF-CARE Condition: Stable Instructions (If sedation given, give patient instructions): Head Injury (ED) Additional Instructions: Follow up with primary care. Return to emergency department if symptoms worsen. Rest. Drink lots of fluids. Is patient prescribed a controlled substance at d/c from ED?: No Referrals: Kaelyn Patel MD [Primary Care Provider] - 1-2 days Time of Disposition: 21:29
--- NOTE | 2020-01-01 20:37 | CT ---
EXAMINATION TYPE: CT facial bones wo con DATE OF EXAM: 01/01/2020 COMPARISON: None HISTORY: Fall today landing on face. Possible syncope. CT DLP: mGycm Automated exposure control for dose reduction was used. Multiple axial sections were obtained from the bottom of the mandible to the top of the frontal sinus es without contrast. The mandibular ring is intact. Temporomandibular joints appear normal. Zygomatic arches appear normal . The maxilla is intact. There is no evidence of a blowout fracture. The orbital margins are intact. There is no evidence of retro-orbital mass. Nasal bone appears intact. There is normal aeration of th e mastoid sinuses. There is normal aeration of the paranasal sinuses. IMPRESSION: Negative CT scan of the facial bones. No fracture seen.
--- NOTE | 2020-01-01 20:40 | CT ---
EXAMINATION TYPE: CT brain ramanine wo con DATE OF EXAM: 01/01/2020 COMPARISON: 01/10/2017 CT brain HISTORY: Fall today landing on face. Possible syncope. CT DLP: 1058.9 mGycm Automated exposure control for dose reduction was used. The ventricles and sulci appear normal. There is no mass effect nor midline shift. There is no sign o f intracranial hemorrhage. Calvarium is intact. There is no evidence of cerebral edema. Skull base is intact. Cervical vertebra have normal spacing and alignment. Posterior elements are intact. Facet joints appe ar normal. Prevertebral soft tissues appear normal. IMPRESSION: Negative CT scan of the brain. Negative CT scan cervical spine. Brain unchanged compared to old exam.
[2020-01-01 20:50] VITALS: BP 97/59; PULSE 78; RESP 18
[2020-01-01] MEDS ORDERED: KETOROLAC 30 MG/ML 1 ML VIAL IM STA (21:29)
== END 2020-01-01 21:39 | disposition home or self-care (01) ==
LOC: EC 19:25
DX: S00.33XA Contusion of nose, initial encounter (principal); F12.90 Cannabis use, unspecified, uncomplicated; R00.1 Bradycardia, unspecified; R55 Syncope and collapse; F41.9 Anxiety disorder, unspecified; F31.9 Bipolar disorder, unspecified; Z79.899 Other long term (current) drug therapy; Z91.030 Bee allergy status; Z88.1 Allergy status to other antibiotic agents; Z88.8 Allergy status to other drugs, medicaments and biological substances; Z91.81 History of falling; W18.39XA Other fall on same level, initial encounter; Y93.89 Activity, other specified; Y92.89 Other specified places as the place of occurrence of the external cause
CPT/HCPCS: 93005; 81025; 72125; 70486; 70450; 99284; 96372; J1885

== ENCOUNTER → 2021-03-25 | Outpatient (CLI) | payer OTHER ==
--- NOTE | 2021-04-26 13:32 | HM ---
72 Hour Holter monitor note: Patient wore a Holter monitor for 72 hrs from 03/25/2021 until 03/27/2021. Findings: Patient's baseline heart rate was normal sinus rhythm. There were no signficant atrial fibrillation, atrial flutter, or ventricular tachycardia episodes. There were no significant pauses greater than 2 seconds. Patient's minimum heart rate was 42 bpm. Patient's maximum heart rate was 131 bpm. Patient's average heart rate was 69. There was 1 single PVC noted. There were 9 patient activated events which corresponded with normal sinus rhythm, no diary to describe what events were. Conclusions: 72 hour Holter monitor showing normal sinus rhythm, occasional sinus bradycardia, one PVC and patient activated events corresponding with normal sinus rhythm. [facility]
== END | disposition home or self-care (01) ==
LOC: RADECHMAIN 11:54
PROVIDERS: ATTEND Family Medicine
DX: R00.2 Palpitations (principal)
CPT/HCPCS: 93225; 93226

== ENCOUNTER → 2021-12-21 | Outpatient (CLI) | payer OTHER ==
--- NOTE | 2021-12-21 15:03 | MR ---
EXAMINATION TYPE: MR hand RT wo/w con DATE OF EXAM: 12/21/2021 COMPARISON: None HISTORY: Mass/swelling on left palm. Hx of same type of mass removed in same area. Marker placed. CONTRAST: Standard multiplanar, multisequence MRI departmental protocol images were obtained without contrast a nd with 6 mL intravenous Gadavist gadolinium contrast. Multiplanar multiecho imaging of the right hand with and without IV contrast. The metacarpals appear intact. The fingers are intact. Flexor and extensor tendons of the hand appear intact. No pathologic fluid collection. There is marke r placed over the palm of the hand in the area of concern. This area shows some cutaneous decreased s ignal on the T2 images. The area measures 2 x 7 mm. No evidence of focal bone destruction. The carpal bones appear intact. Intercarpal joint spaces are fairly normal. There is some mild increased fluid around the triquetrum. IMPRESSION: Slight decreased signal in the skin surface of the mid palm of the hand that could be scar tissue. No suspicious mass. Mild increased fluid around the triquetrum could be some minimal synovitis. No fracture. No evidence of ligament or tendon tear.
== END | disposition home or self-care (01) ==
LOC: RADMRIMAIN 13:18
PROVIDERS: ATTEND Surgery
DX: R22.31 Localized swelling, mass and lump, right upper limb (principal)
CPT/HCPCS: 73220; A9585

== ENCOUNTER 2023-07-24 08:14 | Emergency (ER) | payer OTHER ==
[2023-07-24] MEDS: KETOROLAC 15 MG/ML 1 ML VIAL IM STA (08:47)
[2023-07-24] MEDS: MORPHINE SULFATE 2 MG/ML SYRINGE IM STA (08:48)
[2023-07-24] MEDS: dexAMETHasone 2 MG TAB PO STA (08:48)
[2023-07-24] MEDS: CLINDAMYCIN 150 MG CAP PO STA (08:49)
--- NOTE | 2023-07-24 08:51 | ED ---
ENT HPI - General Chief complaint: Dental/Oral Stated complaint: dental pain Time Seen by Provider: 07/24/23 08:27 Source: patient, RN notes reviewed Mode of arrival: ambulatory Limitations: no limitations - History of Present Illness Initial comments: This is a 37 year old female who presents to the emergency department for a dental abscess. Patient reports a left sided dental abscess to the left lower jaw starting 3 days ago. She has started to noticed drainage coming from this. She has had dental abscesses before on the right side. She is alternating with ibuprofen and Tylenol with no relief in symptoms. She does not currently have a dentist. - Related Data Home Medications Medication Instructions Recorded Confirmed DULoxetine HCL [Cymbalta] 30 mg PO DAILY 03/01/19 03/01/19 Previous Rx's Medication Instructions Recorded Ketorolac [Toradol] 10 mg PO Q6HR PRN #15 tab 07/24/23 RX: clindamycin HCL 300 mg PO Q6H 10 Days #40 capsule 07/24/23 Allergies Allergy/AdvReac Type Severity Reaction Status Date / Time bee venom protein (honey bee) Allergy Anaphylaxis Verified 07/24/23 08:22 cefaclor [From Ceclor] Allergy Unknown Verified 07/24/23 08:22 ondansetron [From Zofran] AdvReac Unknown Verified 07/24/23 08:22 Review of Systems ROS Statement: Those systems with pertinent positive or pertinent negative responses have been documented in the HPI. ROS Other: All systems not noted in ROS Statement are negative. Past Medical History Additional Past Medical History / Comment(s): migraines. back pain. History of Any Multi-Drug Resistant Organisms: None Reported Past Surgical History: Tonsillectomy Additional Past Surgical History / Comment(s): right ear drum repair. Past Anesthesia/Blood Transfusion Reactions: No Reported Reaction Past Psychological History: Anxiety, Bipolar, Depression, PTSD Past Alcohol Use History: None Reported Past Drug Use History: None Reported - Past Family History Father History Unknown: Yes Mother History Unknown: Yes General Exam Limitations: no limitations General appearance: alert, in no apparent distress Head exam: Present: atraumatic, normocephalic, normal inspection ENT exam: Present: other (Possible dental abscess along the left lower jawline. Multiple dental caries.) Respiratory exam: Present: normal lung sounds bilaterally. Absent: respiratory distress, wheezes, rales, rhonchi, stridor Cardiovascular Exam: Present: regular rate, normal rhythm, normal heart sounds. Absent: systolic murmur, diastolic murmur, rubs, gallop, clicks Neurological exam: Present: alert, oriented X3, CN II-XII intact Psychiatric exam: Present: normal affect, normal mood Skin exam: Present: warm, dry, intact, normal color. Absent: rash Course Vital Signs 07/24/23 07/24/23 08:20 09:40 Temperature 98.3 F 98.4 F Pulse Rate 60 62 Respiratory 14 18 Rate Blood Pressure 116/78 120/79 O2 Sat by Pulse 98 98 Oximetry Medical Decision Making - Medical Decision Making This is a 37-year-old female who presents to the emergency department for dental pain. Was pt. sent in by a medical professional or institution? @ -No Did you speak to anyone other than the patient for history? @ -No Did you review nursing and triage notes? @ -Yes, and I agree, it is accurate with regards to the patient's symptoms. Were old charts reviewed? @ -No Differential Diagnosis? @ -Differential Dental Pain: Dental abscess, chipped tooth, dental carries, loni's angina, trigeminal neuralgia, this is not meant to be an all-inclusive list. EKG interpreted by me (3pts min.)? @ -Not obtained X-rays interpreted by me (1pt min.)? @ -Not obtained CT interpreted by me (1pt min.)? @ -Not obtained U/S interpreted by me (1pt. min.)? @ -Not obtained What testing was considered but not performed? (CT, X-rays, U/S, labs)? Why? @ -None What meds were considered but not given? Why? @ -None Did you discuss the management of the patient with other professionals? @ -No Did you reconcile home meds? @ -No Was smoking cessation discussed for >3mins.? @ -I discussed smoking cessation for greater than 3 minutes. The risk of smoking were discussed with the patient including but not limited to risks of cancer, stroke, coronary artery disease and COPD. Also discussed with patient were multiple methods of quitting smoking. Lastly we discussed the financial cost of smoking. Was critical care preformed (if so, how long)? @ -No Were there social determinants of health that impacted care today? How? (Homelessness, low income, unemployed, alcoholism, drug addiction, transportation, low edu. Level, literacy, decrease access to med. care, skilled nursing, rehab)? @ -No Was there de-escalation of care discussed even if they declined? (Discuss DNR or withdrawal of care, Hospice)? @ -No What co-morbidities impacted this encounter? (DM, HTN, Smoking, COPD, CAD, Cancer, CVA, Hep., AIDS, mental health diagnosis, sleep apnea, morbid obesity)? @ -Smoking Was patient admitted / discharged? @ -Discharged. Physical examination consistent with a dental abscess. Patient has an allergy to cephalosporins, but cannot recall what this is, and is also unsure if she has an allergy to penicillins. We will thus avoid penicillin treatment at this time. Prescription for clindamycin and Toradol provided with dosing instructions reviewed. Otherwise advised follow-up with her dentist. Undiagnosed new problem with uncertain prognosis? @ -None Drug Therapy requiring intensive monitoring for toxicity (Heparin, Nitro, Insulin, Cardizem)? @ -None Were any procedures done? @ -None Diagnosis/symptom? @ -Dental abscess Acute, or Chronic, or Acute on Chronic? @ -Acute Uncomplicated (without systemic symptoms) or Complicated (systemic symptoms)? @ -Uncomplicated Side effects of treatment? @ -None Exacerbation, Progression, or Severe Exacerbation] @ -Not applicable Poses a threat to life or bodily function? @ -No Return precautions reviewed in depth, the patient is instructed to return to the emergency department with any new, worsening, or concerning symptoms. Patient verbalized understanding. This case was discussed in detail with the attending ED physician, Dr. Ayers. Presentation, findings, and treatment plan discussed in detail as well. Disposition Clinical Impression: Dental abscess, Nicotine dependence Disposition: HOME SELF-CARE Instructions (If sedation given, give patient instructions): Dental Abscess (ED) Additional Instructions: Return to the emergency department with any new, worsening, or concerning symptoms. Take the antibiotic as prescribed for 10 days. Take the Toradol with Tylenol as needed for pain relief. If you choose to take the Toradol, do not take any other anti-inflammatories such as ibuprofen, take one or the other. Contact the oral surgeon as listed below for a follow up appointment. Follow up with your primary care provider in 1-2 days. Prescriptions: RX: clindamycin HCL 300 mg PO Q6H 10 Days #40 capsule Ketorolac [Toradol] 10 mg PO Q6HR PRN #15 tab PRN Reason: Pain Is patient prescribed a controlled substance at d/c from ED?: No Referrals: Kaelyn Patel MD [Primary Care Provider] - 1-2 days Rj Sadler DDS [STAFF PHYSICIAN] - 1-2 days Time of Disposition: 09:04
[2023-07-24] MEDS: ACET/COD 300 MG/30 MG STARTER PACK 6 TAB BTL PO STA (09:37)
[2023-07-24 09:53] VITALS: BP 120/79; PULSE 62; RESP 18; TEMP 98.4
== END 2023-07-24 09:53 | disposition home or self-care (01) ==
LOC: EC 08:14
DX: K04.7 Periapical abscess without sinus (principal); F17.200 Nicotine dependence, unspecified, uncomplicated; Z86.59 Personal history of other mental and behavioral disorders; Z91.030 Bee allergy status; Z88.8 Allergy status to other drugs, medicaments and biological substances
CPT/HCPCS: 99282; 96372 ×2; J2270; J8540; J1885

== ENCOUNTER → 2024-01-05 | Outpatient (CLI) | payer OTHER ==
--- NOTE | 2024-01-05 21:56 | EEG ---
ELECTROENCEPHALOGRAM REPORT CLINICAL HISTORY: This is a 38-year-old woman with reported history of syncopal episode with loss of consciousness and bladder incontinence. The video EEG is obtained to evaluate for seizure epileptiform activity. RELEVANT MEDICATION: Propranolol per the cad technician report. EEG TYPE: This is a routine 21-channel EEG with video using the 10/20 electrode placement system. DESCRIPTION: Wakefulness and drowsiness are obtained. During awake state, the posterior-dominant rhythm consists of bzo-ia-kunwrtez voltage of 11 to 12 hertz activity that is well modulated, and well sustained. There is no physiological stage 2 sleep architecture. There is focal slowing over the left temporal region. Interictal and ictal, there is sharply contoured activity over the T5 region as well. There is phase reversal over the T5. There is no seizure noted during the study. ACTIVATION PROCEDURE: Photic stimulation did not evoke a posterior driving response. There is no abnormality during the photic stimulation. Hyperventilation is not performed. CLINICAL INTERPRETATION: This is an abnormal routine EEG. The epileptiform discharge over the left temporal (T5) can increase risk for focal seizure as well as status epilepticus. Otherwise, the background is normal. There is no seizure. The focal slowing over the left temporal suggestive of cerebral dysfunction in the involved region. Clinical correlation is recommended. RECOMMENDATIONS: I highly recommend the patient to follow up with a neurologist as an outpatient and consider starting her on an antiepileptic drug. PRAVEEN / VANGIE: [id number] /
== END | disposition home or self-care (01) ==
LOC: RADECHMAIN 07:42
PROVIDERS: ATTEND Family Medicine
DX: R55 Syncope and collapse (principal)
CPT/HCPCS: 93270; 95819

== ENCOUNTER → 2024-04-13 | Outpatient (CLI) | payer OTHER ==
--- NOTE | 2024-04-13 19:32 | MR ---
EXAMINATION TYPE: MR brain wo/w con DATE OF EXAM: 04/13/2024 5:33 PM COMPARISON: 10/29/2021. CLINICAL INDICATION: Female, 38 years old with history of R56.9 UNSPECIFIED CONVULSIONS G40.109; PHH , Seizures TECHNIQUE: Multi planar, multi sequence imaging was performed through the brain including: T1, T2, In version recovery, susceptibility weighted imaging and gradient echo imaging and Diffusion weighted im aging. The patient was then given intravenous contrast and multi planar, T1 fat-saturation images wer e obtained. IV Contrast: 5 mL Gadavist FINDINGS: There is a pineal gland cyst measuring up to 15 mm which is low T1 high T2 signal following CSF fluid and demonstrates thin ortiz. No mural enhancement identified on postcontrast imaging. The marquez-white junctions, ventricular system, basal cisterns appear unremarkable. Diffusion-weighted imaging shows no evidence of restricted diffusion to suggest acute/subacute infarct. Intracranial ar terial flow voids are maintained. Midline structures show no abnormality. The susceptibility weighted images do not reveal any evidence for micro-hemorrhage. After administration of gadolinium, no abnor mal enhancement is seen. The bone marrow signal is within normal limits. Paranasal sinuses and mastoid air cells: No significant paranasal sinus disease. Visualized orbits: Orbital contents are intact. IMPRESSION: 1. No evidence of intra-axial mass, acute/subacute infarct, or abnormal enhancement. 2. 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
== END | disposition home or self-care (01) ==
LOC: RADMRIMAIN 16:35
PROVIDERS: ATTEND Psychiatry & Neurology Neurology
DX: G40.109 Localization-related (focal) (partial) symptomatic epilepsy and epileptic syndromes with simple partial seizures, not intractable, without status epilepticus (principal)
CPT/HCPCS: 70553; A9585

== ENCOUNTER → 2024-06-14 | Outpatient (CLI) | payer OTHER ==
[2024-06-14 15:46] LABS: HCT 33.7 % (37.2-46.3); HGB 11.3 g/dL (12.0-15.0); MCH 30.7 pg (27.0-32.0); MCHC 33.5 g/dL (32.0-37.0); MCV 91.6 FL (80.0-97.0); Mean Platelet Volume 9.6 FL (9.5-12.2); NRBC Per 100 WBC 0 X 10*3/uL (0.00-0.01); Platelet Count 366 X 10*3/uL (140-440); RBC 3.68 X 10*6/uL (4.10-5.20); RDW 11.6 % (11.5-14.5); WBC 6.47 X 10*3/uL (4.50-10.00)
[2024-06-14 15:47] LABS: Basophils # (A) 0.05 X 10*3/uL (0.00-0.10); Basophils % (A) 0.8 %; Eosinophils # (A) 0.33 X 10*3/uL (0.04-0.35); Eosinophils % (A) 5.1 %; Lymphocytes # (A) 2.94 X 10*3/uL (0.90-5.00); Lymphocytes % (A) 45.4 %; Monocytes # (A) 0.45 X 10*3/uL (0.20-1.00); Neutrophils # (A) 2.69 X 10*3/uL (1.80-7.70); Neutrophils % (A) 41.5 %
[2024-06-14 16:07] LABS: ALT 28 U/L (8-44); AST 30 U/L (13-35); Albumin 4.3 g/dL (3.8-4.9); Albumin/Globulin Ratio 2.53 Ratio (1.60-3.17); Alkaline Phosphatase 60 U/L (41-126); BUN/Creat Ratio 17.17 Ratio (12.00-20.00); Blood Urea Nitrogen 10.3 mg/dL (9.0-27.0); Calcium 8.9 mg/dL (8.7-10.3); Carbon Dioxide 24.6 mmol/L (21.6-31.8); Chloride 101 mmol/L (96-109); Chol/HDL Ratio 2.19 Ratio; Globulin 1.7 g/dL (1.6-3.3); Glucose 92 mg/dL (70-110); LDL Cholesterol,Calculated 66.2 mg/dL (0.0-131.0); Potassium 5.2 mmol/L (3.5-5.5); Sodium 136 mmol/L (135-145); T4, Free (Free Thyroxine) 1.15 ng/dL (0.80-1.80); Total Bilirubin 0.5 mg/dL (0.3-1.2); VLDL Calculation 12.08 mg/dL (5.00-40.00)
[2024-06-14 20:46] LABS: Urine Alcohol Negative (Negative); Urine Barbiturate Negative (Negative); Urine Cocaine Negative (Negative); Urine Methadone Negative (Negative); Urine Opiates Negative (Negative); Urine Phencyclidine Negative (Negative)
== END | disposition home or self-care (01) ==
LOC: LABWHC1 09:51
PROVIDERS: ATTEND Family Medicine
DX: R63.4 Abnormal weight loss (principal); Z79.899 Other long term (current) drug therapy
CPT/HCPCS: 36415; 80053; 80061; 80306; 84439; 84443; 85025

== ENCOUNTER → 2024-08-31 | Outpatient (CLI) | payer OTHER ==
--- NOTE | 2024-08-31 10:59 | MM ---
Reason for Exam: Screening (asymptomatic). Patient History: Menarche at age 14. Patient has no children. Premenopausal. Last menstrual period: 08/05/2024 Risk Values: Danae 5 year model risk: 0.4%. NCI Lifetime model risk: 11.3%. Prior Study Comparison: 07/15/2024 Left MG 3D diag mammo w/cad LT, [facility]. Tissue Density: The breasts are extremely dense, which lowers the sensitivity of mammography. Findings: Analyzed By CAD. There is no suspicious group of microcalcifications or new suspicious mass in either breast. A group calcifications upper posterior inner right breast. Overall Assessment: Incomplete: need additional imaging evaluation, BI-RAD 0 Management: Diagnostic Mammogram of the right breast. . Patient should continue monthly self-breast exams. A clinical breast exam by your physician is recommended on an annual basis. This exam should not preclude additional follow-up of suspicious palpable abnormalities. Note on Danae scores and lifetime risk: 1. A Danae score greater than 3% is considered moderate risk. If this is the case, consider specialist referral to assess eligibility for a risk reducing agent. 2. If overall lifetime risk for the development of breast cancer is 20% or higher, the patient may qualify for future screening with alternating mammogram and breast MRI. [facility], , 08/31/2024 10:55 AM. Electronically signed and approved by: Rubén Francois M.D. Radiologis
== END | disposition home or self-care (01) ==
LOC: RADMAMWWP 07:36
PROVIDERS: ATTEND Family Medicine
DX: Z12.31 Encounter for screening mammogram for malignant neoplasm of breast (principal); R92.343 Mammographic extreme density, bilateral breasts; R92.1 Mammographic calcification found on diagnostic imaging of breast
CPT/HCPCS: 77063; 77067

== ENCOUNTER → 2024-09-08 | Outpatient (CLI) | payer OTHER ==
--- NOTE | 2024-09-08 08:18 | MM ---
Reason for Exam: Additional evaluation requested from abnormal screening. Last screening mammogram was performed less than 1 month ago. Patient History: Menarche at age 14. Patient has no children. Premenopausal. Last menstrual period: 09/08/2024 Risk Values: Danae 5 year model risk: 0.4%. NCI Lifetime model risk: 11.3%. Prior Study Comparison: 07/15/2024 Left MG 3D diag mammo w/cad , [facility]. 08/31/2024 Bilateral MG 3D screening mammo w/cad, [facility]. Tissue Density: Right: The breasts are heterogeneously dense, which may obscure small masses. Findings: Analyzed By CAD. There are layering calcifications noted without suspicious cluster. Overall Assessment: Benign, BI-RAD 2 Management: Screening Mammogram of both breasts in 1 year. . Results were given to the patient verbally at the time of exam. Patient should continue monthly self-breast exams. A clinical breast exam by your physician is recommended on an annual basis. This exam should not preclude additional follow-up of suspicious palpable abnormalities. Note on Danae scores and lifetime risk: 1. A Danae score greater than 3% is considered moderate risk. If this is the case, consider specialist referral to assess eligibility for a risk reducing agent. 2. If overall lifetime risk for the development of breast cancer is 20% or higher, the patient may qualify for future screening with alternating mammogram and breast MRI. [facility], , 09/08/2024 8:15 AM. Electronically signed and approved by: Yoan Cedillo M.D. Radiologis
== END | disposition home or self-care (01) ==
LOC: RADMAMWWP 07:37
PROVIDERS: ATTEND Family Medicine
DX: R92.8 Other abnormal and inconclusive findings on diagnostic imaging of breast (principal); R92.331 Mammographic heterogeneous density, right breast; R92.1 Mammographic calcification found on diagnostic imaging of breast
CPT/HCPCS: 77061; 77065